=== PATIENT | male | born 1975 | race Caucasian/White ===

== ENCOUNTER 2020-10-13 08:18 | Emergency (ER) | payer OTHER ==
[~2020-10-13] VITALS: Ht 182.9 cm; Wt 81.2 kg
[2020-10-13 08:26] VITALS: BP 153/98
--- NOTE | 2020-10-13 08:30 | NUR ---
THE PATIENT PRESENTED TO ER FOR MED REFILL FOR PSYCH MEDS,ON-LINE PSYCH IS UNABLE TO RE-FILL HIS MEDS. THE PATIENT ALERT AND ORIENTED X4. DENIES PAIN. IN ROOM AIR AND RESPIRATION REGULAR AND UNLABORED. PATIENT DENIES SI/HI. WILL CONTINUE TO MONITOR THE PATIENT.
--- NOTE | 2020-10-13 08:46 | NUR ---
LEFT A VOICEMAIL MESSAGE AT [facility] FOR PATIENT FOLLOW-UP.
[2020-10-13] MEDS ORDERED: BUPR300T52 PO (08:49)
[2020-10-13] MEDS ORDERED: ALPR1TAB2 PO (08:49)
[2020-10-13] MEDS ORDERED: ARIP20TA4 PO (08:49)
[2020-10-13] MEDS ORDERED: ARIP30TA3 PO (08:52)
--- NOTE | 2020-10-13 08:58 | NUR ---
The patient alert and oriented x4. Denies SI/HI. Denies any distress. Patient discharged to home in stable condition. Written and verbal after care instructions given. Patient verbalizes understanding of instruction.
== END 2020-10-13 09:01 | disposition home or self-care (01) ==
LOC: ER 08:26
DX: F20.9 Schizophrenia, unspecified (principal); Z76.0 Encounter for issue of repeat prescription; F41.9 Anxiety disorder, unspecified; Z60.2 Problems related to living alone